=== PATIENT | female | born 1965 | race Two or more races ===

== ENCOUNTER 2018-05-04 09:02 | Outpatient (CLI) | payer OTHER | END 2018-05-04 09:07 | disposition home or self-care (01) | LOC: SONOGRAMA 09:02 | DX: E04.2 Nontoxic multinodular goiter (principal) ==

== ENCOUNTER 2020-09-08 05:13 | Day surgery (SDC) | payer OTHER ==
[~2020-09-08 05:13] MED LIST: LEVOTHYROXINE25 MCG PO
[2020-09-08] MEDS ORDERED: ULTRACET PO (08:36)
== END 2020-09-08 15:35 | disposition home or self-care (01) ==
LOC: CIR.AMB 05:13
PROVIDERS: ATTEND Surgery
DX: D17.1 Benign lipomatous neoplasm of skin and subcutaneous tissue of trunk (principal); Z20.822 Contact with and (suspected) exposure to COVID-19

== ENCOUNTER 2024-03-26 03:48 | Emergency (ER) | payer OTHER ==
[~2024-03-26] VITALS: Ht 157.5 cm; Wt 59.0 kg
[~2024-03-26 03:48] MED LIST changes: +ULTRACET PO
[2024-03-26] MEDS ORDERED: HYOSCYAMINE SULFATE 0.125 MG TAB.SUBL SL STA (04:09)
[2024-03-26] MEDS ORDERED: FAMOTIDINE/PF 20 MG/2 ML VIAL IV PUSH STA (04:09)
[2024-03-26] MEDS ORDERED: PROMETHAZINE HCL 50 MG/ML AMPUL IM STA (04:09)
[2024-03-26] MEDS ORDERED: LACTOBACILLUS ACIDOPHILUS 1 CAP CAP PO STA (04:10)
[2024-03-26] MEDS ORDERED: PROMETHAZINE HCL 50 MG/ML AMPUL IM ONE (04:12)
[2024-03-26] MEDS ORDERED: LACTOBACILLUS ACIDOPHILUS 1 CAP CAP PO ONE (04:13)
[2024-03-26] MEDS ORDERED: HYOSCYAMINE SULFATE 0.125 MG TAB.SUBL ONE (04:13)
[2024-03-26] MEDS ORDERED: FAMOTIDINE/PF 20 MG/2 ML VIAL ONE (04:13)
[2024-03-26] MEDS ORDERED: 0.9 % SODIUM CHLORIDE 1,000 ML IV ONE (04:15)
[2024-03-26 04:58] LABS: HEMATOCRIT 42.7 % (36.0-45.00); HEMOGLOBIN 15.1 g/dL (12.0-15.00); MEAN CELL VOLUME 86.1 fL (80.00-100.00); MEAN CORPUSCULAR HEMOGLOBIN 30.5 pg (27.00-32.0); MEAN CORPUSCULAR HGB CONC 35.4 g/dl (32.0-36.0); PLATELET COUNT 330 K/uL (150-450); RED BLOOD COUNT 4.96 M/uL (4.00-6.00); RED CELL DISTRIBUTION WIDTH 13.1 % (11.5-14.5)
[2024-03-26 05:02] LABS: CALCIUM 10.1 mg/dL (8.5-10.1); CREATININE SERUM 1.06 mg/dL (0.55-1.02); GFR 53.06; POTASSIUM 4.1 mEq/L (3.5-5.1)
[2024-03-26 09:04] LABS: PH,URINE 5.5 (5.0-8.0); URINE APPEARANCE Cloudy; URINE BILIRRUBIN Negative (NEGATIVE); URINE BLOOD Negative; URINE COLOR Yellow; URINE GLUCOSE Negative (NEGATIVE); URINE KETONE 15 (NEGATIVE); URINE LEUKOCYTE Negative; URINE NITRATE Negative; URINE PROTEIN Trace (NEGATIVE); URINE UROBILINOGEN 0.2 E.U./dl
[2024-03-26 09:09] LABS: URINE BACTERIA 566.9 uL (0.0-1933); URINE EPITHELIAL CELLS 16.8 uL (0.0-38.8); URINE RBC 33.1 uL (0.0-20.8); URINE WBC 26.1 uL (0.0-23.2)
[2024-03-26 09:29] LABS: URINE CAST 0.91 uL (0.0-1.40)
[2024-03-26 12:26] LABS: HEMATOCRIT 40.6 % (36.0-45.00); MEAN CELL VOLUME 88.3 fL (80.00-100.00); MEAN CORPUSCULAR HEMOGLOBIN 30.4 pg (27.00-32.0); MEAN CORPUSCULAR HGB CONC 34.4 g/dl (32.0-36.0); PLATELET COUNT 307 K/uL (150-450); RED BLOOD COUNT 4.59 M/uL (4.00-6.00); RED CELL DISTRIBUTION WIDTH 12.9 % (11.5-14.5)
[2024-03-26] MEDS ORDERED: INTESTINEX680 M1 PO (12:45)
[2024-03-26] MEDS ORDERED: METRONIDAZOLE500 MG PO (12:45)
[2024-03-26] MEDS ORDERED: PEPCID AC20 MG PO (12:45)
[2024-03-26] MEDS ORDERED: METRONIDAZOLE/SODIUM CHLORIDE 500 MG/100 ML PIGGYBACK IV ONE ×2 (12:45→12:59)
[2024-03-26] MEDS ORDERED: DIPHENOXYLATE HCL/ATROPINE 1 UDTAB TABLET PO ONE (12:45)
== END 2024-03-26 14:13 | disposition home or self-care (01) ==
LOC: ER 03:50
PROVIDERS: General Practice
DX: K52.89 Other specified noninfective gastroenteritis and colitis (principal); R11.10 Vomiting, unspecified; E03.8 Other specified hypothyroidism